=== PATIENT | female | born 1940 | race Caucasian/White ===

== ENCOUNTER 2019-02-09 17:00 | Inpatient (IN) ==
--- NOTE | 2019-02-09 18:10 | Diag Imaging Result Doc PS360 ---
EXAM: CHEST-PORTABLE - 02/09/2019 HISTORY: weakness TECHNIQUE: Portable chest COMPARISON: None. FINDINGS: Heart size appears upper normal. The lungs appear clear. There is no pleural effusion or pneumothorax identified. IMPRESSION: No evidence of acute disease. Electronically signed by Carmelo Roa 02/09/2019 6:07 PM
--- NOTE | 2019-02-09 18:13 | Diag Imaging Result Doc PS360 ---
EXAM: CT HEAD W/O CONTRAST - 02/09/2019 HISTORY: syncope TECHNIQUE: CT head without contrast COMPARISON: None. FINDINGS: There is no evidence of intracranial hemorrhage, mass effect, midline shift, or hydrocephalus. There is no evidence of infarct, although acute infarcts may not be immediately visible. There is no evidence of skull fracture. Visualized portions of paranasal sinuses and mastoid air cells appear clear. There are postsurgical changes noted at the left mastoid region. IMPRESSION: No visible acute intracranial abnormality. No hemorrhage or mass effect. This exam was performed using automated exposure control, adjustment of mA or kV according to patient size, and/or use of iterative reconstruction technique. Electronically signed by Carmelo Roa 02/09/2019 6:11 PM
[2019-02-09 18:43] LABS: BASO# 0.01 X1000 (0.0-0.2); BASO% 0.1 % (0.0-0.8); EOS# 0.11 X1000 (0.0-0.7); HEMATOCRIT 37.1 % (37.0-47.0); IMM GRAN# 0.03 X1000 (0.0-0.04); IMM GRAN% 0.3 % (0.0-0.5); LYMPH% 7.2 % (20.5-51.1); MCH 33.4 PG (27-31); MCHC 32.3 g/dL (33-37); MCV 103.3 FL (81-99); MONO# 0.65 X1000 (0.11-0.59); MONO% 5.8 % (1.7-9.3); NEUT# 9.54 X1000 (1.4-6.5); NEUT% 85.6 % (42.2-75.2); PLT 201 X1000 (130-400); RBC 3.59 XMIL (4.2-5.4); RDW 15.3 % (11.5-14.5); WBC 11.14 X1000 (4.8-10.8)
--- NOTE | 2019-02-09 18:58 | PROVIDER DOCUMENTATION ---
HPI-Neurological Disorder - General Chief Complaint: Syncope Stated Complaint: WEAK HAS ILEOSTOMY BAG Time Seen by Provider: 02/09/19 17:35 Source: patient, family Allergies/Adverse Reactions: Patient Allergies Allergy/AdvReac Type Severity Reaction Status Date / Time cephalexin [From Keflex] Allergy Unknown Unknown Verified 02/09/19 19:02 - History of Present Illness-Neuro Nature of Presenting Problem: Patient reports fatigue and nausea this AM prior to dialysis and went for coag studies and could not live the car due to extreme fatigue and feeling faint. Daughter left the car to get a wheelchair, came back to see patient unresponsive but arousable after about 30s to 1 min. She has a colostomy bag and reports frequent emptying of watery stool today. Has emptied bag 8x now as opposed to usual 4x a day. Reports no other sxs Onset/Duration: reports: 1-3 hours ago Timing: reports: improving Context: reports: found unresponsive by family Character of Altered Mental Status: reports: decreased responsiveness Any recent trauma/injury?: reports: none New weakness or altered sensation location:: reports: none Cognitive Baseline: alert, oriented x3 Associated Symptoms: reports: nausea Similar Symptoms Previously?: No Recently seen or treated by another doctor?: No Review of Systems - Adult - REVIEW OF SYSTEMS - ADULT Constitutional: reports: no symptoms reported Eyes: reports: no symptoms reported Ears, Nose, Mouth & Throat: reports: no symptoms reported Cardiovascular: reports: no symptoms reported Respiratory: reports: no symptoms reported Gastrointestinal: reports: see HPI Genitourinary: reports: no symptoms reported Musculoskeletal: reports: no symptoms reported Integumentary: reports: no symptoms reported Neurological: reports: see HPI Psychiatric: reports: no symptoms reported Hematologic/Lymphatic: reports: no symptoms reported Allergic/Immunologic: reports: no symptoms reported Past History - Adult - PAST MEDICAL HISTORY-ADULT Review of Records: reports: Nursing Assessment Review, Medications Reviewed, Social history reviewed & non-contributory. Cardiovascular: reports: denies history, A-Fib Respiratory: reports: denies history Obstetrical/Gynecological: reports: denies history Genitourinary: reports: dialysis Musculoskeletal: reports: denies history Neurological: reports: denies history Psychiatric: reports: denies history Endocrine/Immune: reports: denies history - PRIOR SURGERIES/PROCEDURES Surgical/Procedure History: reports: appendectomy, cholecystectomy, hysterectomy , other (illeostomy) - FAMILY HISTORY Family History: reviewed, not pertinent - SOCIAL HISTORY Smoking: denies Substance Use: none/never Alcohol Use Frequency: never Physical Exam- Neurological - Physical Exam-Neuro Initial Vital Signs Reviewed: Yes General Appearance: appears well, alert, no apparent distress HENMT: normocephalic/atraumatic, moist mucous membranes Head Injury: no evidence of injury Neck: non-tender, full range of motion, supple Respiratory: chest non-tender, lungs clear, normal breath sounds Cardiovascular: no edema, no murmur Abdominal Exam: non tender, soft (illeostomy bag noted, half filled with liquid stool) Extremity: non-tender, no calf tenderness 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 Exam: normal speech, PERRL Neurologic: 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 II-XII nml as tested Integumentary: normal color Psych/Mental Status: oriented x 3 - Glascow Coma Scale Best Eye Response: (4) open spontaneously Best Verbal Response: (5) oriented Best Motor Response: (6) obeys commands Progress - PLAN OF CARE/RESULTS Progress/Plan/Lab Results: Vital Signs - 8 hr 02/09/19 17:20 Temperature 97.4 F L Pulse Rate 80 Respiratory Rate 17 Blood Pressure 90/62 O2 Sat by Pulse Oximetry 96 Laboratory Results - last 24 hr 02/09/19 02/09/19 02/09/19 18:22 18:24 18:24 WBC 11.14 H RBC 3.59 L Hgb 12.0 Hct 37.1 MCV 103.3 H MCH 33.4 H MCHC 32.3 L RDW Std Deviation 15.3 H Plt Count 201 MPV 10.0 Immature Gran % (Auto) 0.3 Neut % (Auto) 85.6 H Lymph % (Auto) 7.2 L Evans % (Auto) 5.8 Eos % (Auto) 1.0 Baso % (Auto) 0.1 Immature Gran # (Auto) 0.03 Neut # (Auto) 9.54 H Lymph # (Auto) 0.80 L Evans # (Auto) 0.65 H Eos # (Auto) 0.11 Baso # (Auto) 0.01 PT INR PTT (Actin FS) Sodium Potassium Chloride Carbon Dioxide Anion Gap BUN Creatinine Estimated GFR/1.73 m2 BUN/Creatinine Ratio Glucose POC Glucose 127 H Calculated Osmolality Calcium Magnesium Total Bilirubin AST ALT Alkaline Phosphatase Creatine Kinase Troponin T Ckw-[id number]-Xzlcpmpmmfz Pept 4635 H Total Protein Albumin Globulin Albumin/Globulin Ratio 02/09/19 02/09/19 02/09/19 18:24 18:24 18:24 WBC RBC Hgb Hct MCV MCH MCHC RDW Std Deviation Plt Count MPV Immature Gran % (Auto) Neut % (Auto) Lymph % (Auto) Evans % (Auto) Eos % (Auto) Baso % (Auto) Immature Gran # (Auto) Neut # (Auto) Lymph # (Auto) Evans # (Auto) Eos # (Auto) Baso # (Auto) PT 25.8 H INR 2.29 PTT (Actin FS) 44.6 H Sodium 134 L Potassium 4.0 Chloride 96 L Carbon Dioxide 20 L Anion Gap 18 BUN 31 H Creatinine 4.0 H Estimated GFR/1.73 m2 11 BUN/Creatinine Ratio 8 Glucose 133 H POC Glucose Calculated Osmolality 277 Calcium 9.5 Magnesium 1.9 Total Bilirubin 0.19 L AST 16 ALT 18 Alkaline Phosphatase 93 Creatine Kinase 25 Troponin T 0.014 Nfh-B-Amnhjtliezl Pept Total Protein 7.0 Albumin 4.2 Globulin 2.8 Albumin/Globulin Ratio 1.5 Orders Category Date Time Status Saline Loc NOW Care 02/09/19 17:34 Active CHEST-PORTABLE [RAD] Stat Exams 02/09/19 17:[address] HEAD W/O CONTRAST [CT] Stat Exams 02/09/19 17:43 Completed CBC WITH ELECTRONIC DIFF [HEME] Stat Lab 02/09/19 18:24 Completed CK PROFILE [SP CHEM] Stat Lab 02/09/19 18:24 Completed CK PROFILE [SP CHEM] Stat Lab 02/09/19 22:06 Received COMPREHENSIVE METABOLIC PANEL [CHEM] Stat Lab 02/09/19 18:24 Completed LACTATE, PLASMA [CHEM] Stat Lab 02/09/19 22:06 Received MAGNESIUM [CHEM] Stat Lab 02/09/19 18:24 Completed PRO B-NATRIURETIC PEPTIDE Stat Lab 02/09/19 18:24 Completed PROTIME WITH INR [COAG] Stat Lab 02/09/19 18:24 Completed PTT [COAG] Stat Lab 02/09/19 18:24 Completed TROPONIN T Stat Lab 02/09/19 18:24 Completed 0.9% Sodium Chloride Inj [Ns] 250 ml Med 02/09/19 21:02 Active IV 80 mls/hr Ondansetron [Zofran] Med 02/09/19 20:38 Discontinued 4 mg PO NOW ONE EKG [EKG] Stat Ther 02/09/19 17:34 Ordered Result Diagrams: 02/09/19 18:24 02/09/19 18:24 - REASSESSMENT Reassessment #1 Time Reassessed: 20:37 Status: unchanged (still nauseous. Will give zofran) - EKG 1 Time of EKG reading by physician:: 17:35 EKG Read and Signed by:: Beryl Abdul EKG Interpretation (*Must complete 3 of following elements*): Abnormal Rate: 82 Rhythm: sinus arrtythmia [place]: left QRS: normal - XRAY 1 XRAY Study: Chest ( EXAM: CHEST-PORTABLE - 02/09/2019 HISTORY: weakness TECHNIQUE: Portable chest COMPARISON: None. FINDINGS: Heart size appears upper normal. The lungs appear clear. There is no pleural effusion or pn eumothorax identified. IMPRESSION: No evidence of acute disease. Electronically signed by Carmelo Roa 02/09/2019 6:07 PM 02/09/191806 Interpreting Physician: Carmelo Roa MD Dictated Date/Time: 02/09/191806 cc: Dia Boyd; Chuy Muñiz MD) - CT/MRI 1 CT Study: Head ( EXAM: CT HEAD W/O CONTRAST - 02/09/2019 HISTORY: syncope TECHNIQUE: CT head without contrast COMPARISON: None. FINDINGS: There is no evidence of intracranial hemorrhage, mass effect, midline shift, or hydrocephalus. There is no evidence of infarct, although acute infarcts may not be immediately visible. There is no evidence of skull fracture. Visualized portions of paranasal sinuses and mastoid air cells appear clear. There are postsurgical changes noted at the left mastoid region. IMPRESSION: No visible acute intracranial abnormality. No hemorrhage or mass effect. This exam was performed using automated exposure control, adjustment of mA or kV according to patient size, and/or use of iterative reconstruction technique. Electronically signed by Carmelo Roa 02/09/2019 6:11 PM 02/09/19 1811 Interpreting Physician: Carmelo Roa MD Dictated Date/Time: 02/09/191807 cc: Bharati Tran MD; Chuy Muñiz MD) - CONSULTS/PCP/HOSPITALIST Notification #1 *Consult/PCP/Hospitalist*: Dr Lockhart Time Discussed: 22:40 Consult Disposition: Admit (accepted admission) Departure - Departure Date of Disposition Decision: 02/09/19 Time of Disposition Decision: 22:38 DIAGNOSIS: Lethargic AMS (altered mental status) Qualifiers: Altered mental status type: somnolence Qualified Code(s): R40.0 - Somnolence Disposition: HOME 01 Certified Medical Emergency: Emergent Condition: Fair Referrals and Follow-Ups: Chuy Muñiz MD [Primary Care Provider] - - Critical Care Note This patient required my direct & personal management of CC.: No Attestation - Physician/ ALEJANDRO Attestation Patient care was provided by Advanced Practice Provider:: No The physician spent face to face time with patient:: Yes Advanced Practice Provider documentation review:: Supervising physician onsite and consulted in the evaluation and care of this patient. The physician did have a face to face encounter with the patient.
[2019-02-09 19:07] LABS: ALB/GLOB RATIO 1.5; ALBUMIN 4.2 g/dL (3.5-5.0); CALCIUM 9.5 mg/dL (8.8-10.2); MAGNESIUM 1.9 mg/dL (1.5-2.7); TOTAL BILIRUBIN 0.19 mg/dL (0.20-1.00)
[2019-02-09] MEDS ORDERED: ZOFRAN PO ONE (20:38)
[2019-02-09] MEDS ORDERED: NS 250 ML IV ONE (21:02)
[2019-02-09 21:42] LABS: INR 2.29; PROTIME 25.8 Seconds (11.0-16.0)
[2019-02-09 21:43] LABS: PTT 44.6 Seconds (22.3-41.8)
[2019-02-10] MEDS ORDERED: ZOFRAN IV PRN (00:20)
[2019-02-10] MEDS ORDERED: TYLENOL PO PRN (00:20)
[2019-02-10] MEDS ORDERED: NS 1,000 ML IV SCH (00:20)
[2019-02-10] MEDS: HEPARIN SUBQ SCH ×3 (00:50→23:39)
[2019-02-10 06:25] LABS: CALCIUM 8.8 mg/dL (8.8-10.2); CREATININE 5.2 mg/dL (0.5-0.9); POTASSIUM 4.9 mmol/L (3.5-5.1)
--- NOTE | 2019-02-10 06:40 | HISTORY AND PHYSICAL ---
CHIEF COMPLAINT: Syncope and weakness. HISTORY OF PRESENT ILLNESS: This is an 78-year-old female who looks younger than her stated age who comes in after receiving dialysis today. She had a small syncopal episode while getting into the car with her daughter witnessing. She was arousable after a few seconds but she feels very weak and has come into the emergency room. She has an ostomy after a colon resection. Stated that yesterday, she also dumped out roughly 8 ostomy bags that were totally full of liquid stool. She appears to be volume depleted on exam. She will be admitted and observed for further evaluation and treatment. PAST MEDICAL HISTORY: 1. End-stage renal disease with Friday, , Friday hemodialysis. 2. Small bowel obstruction status post colon resection with ostomy placement. SURGICAL HISTORY: 1. Bilateral total knees. 2. Right total hip. 3. Cholecystectomy. 4. Hysterectomy. 5. Appendectomy. 6. Small bowel resection with ostomy placement. 7. Left shoulder blade SLAP tear repair. FAMILY HISTORY: Mother had hypertension. Father and sister had diabetes mellitus. ALLERGIES: Cephalexin. HOME MEDICATIONS: A list of home medications is not in the computer. Order was placed for nursing to reconcile home medications. These can be restarted when they have been gotten from the pharmacy. REVIEW OF SYSTEMS: Fourteen point review of systems conducted with the patient. Pertinent positives listed above in the HPI. All other systems reviewed and found to be negative. PHYSICAL EXAMINATION: VITAL SIGNS: Temperature 97.7 degrees, pulse 68, respirations 23, blood pressure 135/54, oxygen saturation 96% on room air. GENERAL: Pleasant 78-year-old female looks much younger than her stated age. She is alert and oriented x3. Answers all questions appropriately and she is in no acute distress. HEENT: Head is atraumatic, normocephalic. Pupils equal, round and reactive to light. Extraocular eye movements intact. Sclerae nonicteric. Conjunctivae pink. Oral mucosa is dry. NECK: Supple. No JVD. No thyromegaly. Trachea midline. No cervical lymphadenopathy. CARDIAC: S1, S2 appreciated. No murmurs, gallops, rubs. LUNGS: Clear to auscultation bilaterally. No rhonchi, wheezes, rales. Symmetric rise and fall of respirations. ABDOMEN: Soft, nondistended, nontender. Bowel sounds present in all 4 quadrants. Ostomy clean, dry and intact. EXTREMITIES: No cyanosis, clubbing or edema. 1+ pedal pulses bilaterally. Right upper arm fistula positive thrill and bruit. GENITOURINARY: No bladder distention. Otherwise deferred. NEUROLOGICAL: Alert and oriented x3. Cranial nerves 2-12 grossly intact. DIAGNOSTIC DATA: Chest x-ray, no acute disease. CT of the head, no acute intracranial process. LABORATORY DATA: WBC 11.14, hemoglobin 12, hematocrit 37.1, platelet count 201,000. INR 2.29. Sodium 134, potassium 4, chloride 96, carbon dioxide 20, BUN 31, creatinine 4, glucose 133. ASSESSMENT AND PLAN: 1. Generalized weakness. 2. Syncope. 3. Volume depletion. 4. End-stage renal disease with hemodialysis. PLAN: Place patient in observation status. We will give fluids at 50 mL an hour. Check stool for white blood cells and C. diff. We will check a stool culture. Check hemoglobin A1c. Trend her labs. We will consult Physical Therapy. Further recommendations per patient's clinical course. Dictated by ERIC Acosta for Jatinder Stroud MD cc: ERIC Acosta MD Patient presenting with syncope and weakness most likely related to volume depletion. Patient has a history of ESRD on Hemodialysis. I agree with the A/P of the ERIC. Dr. Stroud. [facility]
[2019-02-10 07:46] LABS: HEMOGLOBIN A1C 4.9 % (4.8-6.0)
--- NOTE | 2019-02-10 08:21 | EKG Report ---
Test Performed on : 02/09/2019 5:29:01 PM Test Reason : CP Blood Pressure : / mmHG Vent. Rate : 082 BPM Atrial Rate : 082 BPM P-R Int : 142 ms QRS Dur : 086 ms QT Int : 380 ms P-R-T Axes : 048 025 063 degrees QTc Int : 443 ms Sinus rhythm. with premature supraventricular complexes. Minimal voltage criteria for LVH, may be normal variant Nonspecific ST abnormality Abnormal ECG No previous ECGs available Unconfirmed Result
--- NOTE | 2019-02-10 15:14 | Diag Imaging Result Doc PS360 ---
EXAM: US RENAL 2 (RETROPER) COMPLETE 02/10/2019 HISTORY: decreased renal function TECHNIQUE: Renal ultrasound COMMENT: The study is suboptimal due to the patient's body habitus. The right kidney is 5.2 x 3 x 2.4 cm the left kidney cannot be found. The bladder is not distended. There is no evidence of hydronephrosis on the right. IMPRESSION: Right renal atrophy. Electronically signed by Ayden Weber 02/10/2019 3:11 PM
[2019-02-10] MEDS: NS 1,000 ML IV SCH ×2 (15:22→23:11)
--- NOTE | 2019-02-10 16:12 | PROGRESS NOTE ---
DATE: 02/10/2019 SUBJECTIVE: This morning Ms. Mcduffie refers to be doing well. She has not seen as much output in the ostomy as before she came into the hospital. OBJECTIVE: Vital: Blood pressure is 126/65, pulse of 74, respiration is 18, temperature is 98.2. degrees. Of note, Ms. Mcduffie presented with a blood pressure of 90/62. General exam: Ms. Mcduffie is an 78-year-old elderly female. She is in bed. Morbidly obese. BMI is 39.7. She is not in any distress. HEENT: Mucosa is pink, slightly dry. Anicteric. Acyanotic. Neck: Supple. Chest: Good air entry bilaterally. No crepitations. No rhonchi. Cardiovascular: Regular rate and rhythm. GI/Abdomen: Soft, nontender. Bowel sounds present. There is an ileostomy on the right side of the abdomen with adequate output. Extremities: No pedal edema. TECHNICAL SUPPORT ASSISTANT: Patient is awake, alert, and oriented. No focal deficit. LABORATORY DATA: From yesterday, this has been reviewed. Chemistry this morning shows a creatinine of 5.2. The patient is end-stage anyway. ASSESSMENT: 1. Syncopal episode at home secondary to orthostatic hypotension. 2. Hypotension on admission due to severe intravascular depletion. 3. High output in the ileostomy, presumably from gastroenteritis. 4. Endstage renal disease on hemodialysis. The patient has been evaluated by Dr. Roberson, and they plan to dialyze her tomorrow. 5. Generalized weakness, improved. cc: Haim Crews MD
--- NOTE | 2019-02-10 21:40 | NEPHROLOGY CONSULTATION ---
DATE: 02/10/2019 REASON FOR CONSULTATION: HD. HISTORY OF PRESENT ILLNESS: Ms. Mcduffie is an 78-year-old white female who is well known to us from the outpatient arena. She did not complete her dialysis treatment yesterday because of worsening diarrhea. She had to empty her bag 4 times before noon with copious liquid stool. She went to her doctor, but while in the parking lot she had an episode of weakness and syncope. She was evaluated by Dr. Muñiz and then directed to the emergency room. Her initial evaluation found her blood pressure 90/62 with heart rate of 80 and respirations 17. She was treated with IV fluid resuscitation, with improvement in her vital signs. She has had no recurrence of her symptoms. There was no prodrome of chest pain, palpitations, headache, visual symptoms, etc. PAST MEDICAL HISTORY: Includes CKD 5D, history of colon resection with ileostomy, degenerative arthritis. MEDICATIONS: Home medications include cinacalcet, fexofenadine, levothyroxine, pravastatin, sevelamer, warfarin, metoprolol. ALLERGIES: Cephalexin. SOCIAL HISTORY: She lives with her daughter. FAMILY HISTORY: Otherwise noncontributory. REVIEW OF SYSTEMS: Otherwise noncontributory. PHYSICAL EXAMINATION: Blood pressure 118/50, heart rate 69, respirations 17, afebrile. Generally in no acute distress. Skin is warm and dry. Neck veins are not visible. Heart is regular, distant. Lungs are equal, clear. Abdomen obese, soft, nontender. Normal ostomy.Extremities: No edema, clubbing or cyanosis. Neurologic exam nonfocal. IMPRESSION AND PLAN: Chronic kidney disease 5D. She will have her next routine hemodialysis on . Electrolytes/acid base/anemia all in target. Syncope is likely related to intravascular volume depletion, which has been corrected appropriately. No other testing required from my perspective. cc: Marcos Davey MD
--- NOTE | 2019-02-11 04:02 | ECHO REPORT ---
ORDER DATE: 02/10/2019 MEASUREMENTS: 1. Aortic root 3.1. 2. Left atrium 3.3. SUMMARY: 1. Very difficult study for interpretation due to very limited acoustic window quality. Intravenous echo contrast agent Optison was utilized to enhance endocardial definition. 2. Aortic valve is without evidence of structural abnormality and opens adequately on 2- dimensional images. Peak gradient across aortic valve is less than 10 mmHg. Mitral and tricuspid valves are without gross structural abnormality. Pulmonic valve is not well demonstrated. Aortic root is normal size. 3. Normal left ventricular dimensions suggested. Estimated left ejection fraction appears to be at least 60%. No obvious regional wall motion abnormality can be appreciated. Doppler suggests grade 1 left ventricular diastolic dysfunction. Left atrium is mildly enlarged. Right atrium and right ventricle are grossly normal in size with grossly preserved right ventricular systolic function. 4. No pericardial effusion. 5. Appearance of inferior vena cava suggests normal central venous pressure. cc: MD Zamzam Alston CRNP
[2019-02-11 05:53] LABS: ALBUMIN 3.3 g/dL (3.5-5.0); CALCIUM 8.4 mg/dL (8.8-10.2); CREATININE 7.4 mg/dL (0.5-0.9); HEMATOCRIT 30.8 % (37.0-47.0); HEMOGLOBIN 9.8 g/dL (12.0-16.0); MCH 33.8 PG (27-31); MCHC 31.8 g/dL (33-37); MCV 106.2 FL (81-99); MPV 9.9 FL (7.4-10.4); PHOSPHORUS 8.4 mg/dL (2.7-4.5); POTASSIUM 5.1 mmol/L (3.5-5.1); RBC 2.9 XMIL (4.2-5.4); RDW 15.5 % (11.5-14.5); WBC 6.83 X1000 (4.8-10.8)
[2019-02-11] MEDS ORDERED: HEPARIN IV PRN (06:19)
[2019-02-11] MEDS ORDERED: NS 2,000 ML MISC PRN (06:19)
[2019-02-11] MEDS ORDERED: TIGHT: 0.2 ML/HR FOR DIALYSIS MISC PRN (06:19)
[2019-02-11 08:15] VITALS: BP 151/77
--- NOTE | 2019-02-11 13:37 | PROVIDER PROGRESS NOTE ---
Progress Note Subjective: Voices feeling much better, back down to normal amount of colostomy bag changes and still is thickening. Objective: temperature 97.5, pulse 73, respirations 18, blood pressure 142/54, 02 sat 95% on room air. General: obese, elderly white female lying in bed in no acute distress HEENT: normocephalic, atraumatic, mucous membranes dry, pupils equal and reactive, trachea midline Skin: warm and dry Neck: Supple, no jvd observed Cardiovascular: S1s2 regular rate and rhythm. No murmur gallop noted. Respiratory: Lungs clear bilaterally with equal air excursion Abdomen: Obese, soft, nontender, nondistended, ileostomy in place with green bile. : non inspected Extremities: Trace edema, left upper arm fistula with positive thrill and bruit Neurologic: alert and oriented to person, place and time. Labs: WBC 6.83, hemoglobin 9.8, hematocrit 30.8, platelet count 169, sodium 133, potassium 5.1, chloride 99, carbon dioxide 16, BUN 60, creatinine seven intake 3740, output 250. Impression: Chronic kidney disease stage 5D. Patient is receiving her routine hemodialysis treatment today. OK for d/c after HD. Blood pressure. In goal. Electrolytes and acid base balance. Correction with hemodialysis today. Anemia. Hemoglobin down to 9.8. We will check FOBT. This could be diluted from IFV. Nutrition. Adequate Medication Review . None
[2019-02-11] MEDS: HEPARIN SUBQ SCH (15:32)
--- NOTE | 2019-02-12 17:58 | DISCHARGE SUMMARY ---
ADMISSION DATE: 02/09/2019 DISCHARGE DATE: 02/11/2019 DISPOSITION: Is home. FOLLOW-UP: Will be: 1. Dr. Chuy Muñiz. 2. Dr. Davey. CONSULTATION DURING THIS ADMISSION: Nephrology was consulted. The patient was seen by Dr. Davey. INVASIVE PROCEDURES DONE DURING THIS ADMISSION: None. IMAGING STUDIES OF SIGNIFICANCE: 1. Initial chest x-ray showed no evidence of acute disease. 2. A CT scan of the abdomen showed no visible acute intracranial disease. 3. A renal ultrasound showed a right renal atrophy. ADMISSION DIAGNOSIS: 1. Generalized weakness. 2. Syncope. 3. Volume depletion. 4. Endstage renal disease with hemodialysis. DIAGNOSIS AT THE TIME OF DISCHARGE: 1. Syncopal episode at home secondary to volume secondary to orthostatic hypotension. 2. Hypotension on admission due to hypovolemic shock, which improved with adequate fluid resuscitation. 3. Severe intravascular depletion. Improved. 4. High output ileostomy, presumably from viral gastroenteritis. 5. Endstage renal disease on hemodialysis. 6. Generalized weakness. Improved. 7. Hypothyroidism. Patient is on Synthroid. DISCHARGE MEDICATIONS: 1. Sensipar 30 mg p.o. as directed. 2. Fexofenadine 180 p.o. daily. 3. Synthroid 112 mcg p.o. daily. 4. Pravastatin 20 mg p.o. daily. 5. Renvela 800 mg p.o. a.c. 6. Coumadin 5 mg p.o. at bedtime. 7. Metoprolol 25 p.o. daily. PRESENTING COMPLAINT: Weakness and syncope. HISTORY OF PRESENTING COMPLAINT: Ms. Mcduffie is an 78-year-old female who is known to have end-stage renal disease, presented to the emergency department after she passed out while trying to get into her car. She aroused a few seconds after and was brought into the emergency department where she was evaluated and was found to have initial blood pressure of 90/62. She was thought to be extremely dehydrated and was admitted for further medical care. HOSPITAL COURSE: Ms. Mcduffie was admitted to the medical floor was adequately fluid resuscitated. She got a total of about 3490 mL of fluid. Blood pressures and vitals became stabilized. She started feeling better. She was evaluated by Nephrology and dialysis was done. Ms. Mcduffie also did complain of high output in her ileostomy. She says she has been changing more than 8 bags per day, which is quite unusual. During the hospital course, culture was done on the ostomy output, but there was no enteric pathogen. Clostridium difficile was also negative. During the hospital course, the ileostomy output got significantly better. Ms. Mcduffie started tolerating her diet and she was evaluated by this morning per Nephrology. The patient could discharged from their end after dialysis. I saw Ms Mcduffie this morning. She refers to be doing a whole lot better. Her current vitals blood pressure is 140/81, pulse of 73, respiration is 16, temperature 97.4 degrees. She has only changed the ostomy bag 1 time today. We think she is back to her baseline. She is clinically stable. She can be discharged. All the discharge instructions have been discussed with her and she voiced understanding. TIME SPENT FOR DISCHARGE: Is 35 minutes. cc: MD Chuy Bailey MD Reginald D. Gladish, MD
== END 2019-02-11 17:49 | disposition home or self-care (01) | DRG 312 ==
LOC: ED 17:00 → 1N 17:00 → SUATTDRO 23:32 → OBSVTOIN 23:32
PROVIDERS: ATTEND Internal Medicine